=== PATIENT | male | born 1960 | race Caucasian/White ===

== ENCOUNTER 2017-02-12 16:03 | Emergency (ER) | payer OTHER ==
[2017-02-12 16:23] VITALS: RESP 16; TEMP 97.9
--- NOTE | 2017-02-12 16:30 | EDPHY ---
H & P Stated Complaint: L foot swelling Time Seen by Provider: 02/12/17 16:28 HPI/ROS: HPI: This is a 57-year-old male presents with Chief Complaint: L foot swelling Location: Left foot Quality: Swelling Duration: Since this morning Signs and Symptoms: No bleeding, no radiation, no numbness, no weakness, no tingling, no decreased range of motion, + swelling, + pain Timing: Sudden, constant, worse with weight-bearing Severity: Moderate Context: Patient has a history of atrial fibrillation on Rythmol and Xarelto presents with complaints of left foot popping on the lateral aspect as he is walking across a hardwood floors this morning barefoot. He has noticed some mild swelling and pain with weight-bearing. Of note patient had a foot surgery approximately 2 years ago. Modifying Factors: None Comment: ROS: see HPI Constitutional: No fever, no chills, no weight loss Eyes: No blurred vision Respiratory: No shortness of breath, no cough Cardiovascular: No chest pain Gastrointestinal: No nausea, no vomiting no diarrhea Genitourinary: No dysuria Extremities: No myalgias Neurologic: No weakness, no numbness Skin: No rashes Hematologic: No bruising, no bleeding MEDICAL/SURGICAL/SOCIAL HISTORY: Medical history: afib on Rythmol, ulcerative colitis, KAYLIE Surgical history: Left foot surgery Social history: CONSTITUTIONAL: Overweight adult white male, awake and alert, no obvious distress HEENT: Atraumatic and normocephalic, PERRL, EOMI. Tympanic membranes clear. Oropharynx clear, no exudate and moist pink mucosa. Airway patent. No lymphadenopathy. No meningismus. Cardiovascular: Normal S1/S2, regular rate, regular rhythm, without murmur rub or gallop. PULMONARY/CHEST: Symmetrical and nontender. Clear to auscultation bilaterally. Good air movement. No accessory muscle usage. ABDOMEN: Soft, nondistended, nontender, no rebound, no guarding, no peritoneal signs, no masses or organomegaly. No CVAT. EXTREMITIES: 2/2 DP and PT pulses, strength 5/5, left ft shows well-healed vertical incisions over the 3rd MTP, 5th MTP accompanied by well-healed incision over the talus. Ankle; Plantar flexion to 50, dorsiflexion to 20. Foot inversion to 35 degree. Tenderness present over the peroneus longus and brevis tendon along with tenderness over the extensor digitorum brevis muscle. No tenderness/swelling Anterior talofibular ligament. No tenderness/swelling Calcaneofibular ligament, no tenderness/swelling posterior talofibular ligament , no tenderness/swelling posterior inferior tibiofibular ligament. Achilles tendon intact. no deformities, no clubbing, no cyanosis or edema. NEUROLOGICAL: no focal neuro deficits. GCS 15. SKIN: Warm and dry, no erythema. no rash. Good capillary refill. Source: Patient Exam Limitations: No limitations - Personal History Current Tetanus/Diphtheria Vaccine: Unsure Current Tetanus Diphtheria and Acellular Pertussis (TDAP): Unsure Tetanus Vaccine Date: 2004 - Medical/Surgical History Hx Asthma: No Hx Chronic Respiratory Disease: No Hx Diabetes: No Hx Cardiac Disease: Yes Hx Renal Disease: No Hx Cirrhosis: No Hx Alcoholism: No Hx HIV/AIDS: No Hx Splenectomy or Spleen Trauma: No Other PMH: afib, ulcerative colitis, KAYLIE, L foot surgery, - Social History Smoking Status: Former smoker Constitutional: Initial Vital Signs Temperature (C) 36.6 C 02/12/17 16:20 Heart Rate 63 02/12/17 16:20 Respiratory Rate 16 02/12/17 16:20 Blood Pressure 143/91 H 02/12/17 16:20 O2 Sat (%) 97 02/12/17 16:20 O2 Delivery Mode Room Air Allergies/Adverse Reactions: Penicillins Allergy (Intermediate, Verified 02/12/17 16:17) HANDS SWELLING pineapple Allergy (Intermediate, Verified 02/12/17 16:17) FACIAL SWELLING HAYFEVER Allergy (Mild, Uncoded 02/12/17 16:17) RUNNY NOSE, SINUS PROB Home Medications: Medication Instructions Recorded ATENOLOL [Atenolol 50 mg] 50 mg PO DAILY 02/18/11 Doxylamine Succinate [Unisom Sleep 25 mg PO HS PRN 11/05/13 Aid] Lialda 4.8 gm PO DAILY 11/05/13 Montelukast Sodium 10 mg PO HS 11/05/13 Mellen-3 Fatty Acids/Fish Oil [Fish 1 each PO DAILY 11/05/13 Oil 1,000 mg Softgel] Omeprazole 40 mg PO DAILY 11/05/13 buPROPion XL [Wellbutrin 150mg XL] 150 mg PO DAILY 11/05/13 Atorvastatin Calcium [Lipitor 40 40 mg PO DAILY #30 tab 11/10/13 mg (*)] Propafenone HCl [Rythmol 150mg (*)] 225 mg PO BID #60 tab 11/10/13 Rivaroxaban [Xarelto] 20 mg PO DAILY #30 tablet 11/10/13 oxyCODONE/APAP 5/325 [Percocet 1 - 2 tab PO Q4H PRN #20 tab 02/12/17 5/325 (*)] Medical Decision Making - Diagnostics Imaging Results: Imaging Impressions Foot X-Ray 02/12/17 16:28 Impression: Fifth metatarsal fracture.. Procedures: Procedure: Splint placement. A left walking boot was applied by the emergency sales service technician. After application of the splint I returned and re-examined the patient. The splint was adequately immobilizing the joint and distal to the splint the patient's circulation and sensation was intact. ED Course/Re-evaluation: Left foot x-ray ordered Patient politely declined any pain medications. Ice pack applied. No signs of neurovascular compromise/tenting of skin/compartment syndrome/ extremities and joints examined above and below area of concern and are neurovascularly intact. X-ray my read shows a 5th metacarpal tarsal fracture; nondisplaced- hardware alignment is present. No loosening of hardware. Placed in walking boot; nonweightbearing status; crutches; pain control; rice therapy Patient prefers to return to Dr. Portillo as he performed his original foot surgery This patient was seen under the supervision of my primary supervising physician. I evaluated care for this patient independently. Discussed this patient with Dr. Ortiz who did not see the patient. Differential Diagnosis: Differential diagnosis includes but is not limited to, metacarpal fracture, hardware loosening, fascia strain, contusion, hematoma, tendinitis. Departure - Departure Disposition: Home, Routine, Self-Care Clinical Impression: [place] fracture Qualifiers: Encounter type: initial encounter Fracture type: closed Laterality: left Qualified Code(s): S99.192A - Other physeal fracture of left metatarsal, initial encounter for closed fracture Condition: Good Instructions: Toe Fracture (ED), Foot Fracture in Adults (ED) Additional Instructions: Wear the walking boot while out of bed and use crutches to aid ambulation. Weight-bearing status is to be toe-touch only. Take Ibuprofen 600 mg every 8 hours with food as needed for pain. Apply ice for 30 minutes at a time; 2-3 times per day for the next 1-2 days. Follow up with Orthopedics in 5-7 days at which time they will evaluate and recommend with you if conservative management versus surgery is indicated. Referrals: Karan Portillo MD [Medical Doctor] - As per Instructions Prescriptions: oxyCODONE/APAP 5/325 [Percocet 5/325 (*)] 1 - 2 tab PO Q4H PRN #20 tab PRN Reason: Pain, Severe
[2017-02-12 17:25] VITALS: BP 141/92; PULSE 68; O2SAT 96
== END 2017-02-12 17:25 | disposition home or self-care (01) ==
DX: S99.192A Other physeal fracture of left metatarsal, initial encounter for closed fracture (principal); Z87.891 Personal history of nicotine dependence; X58.XXXA Exposure to other specified factors, initial encounter; Y99.8 Other external cause status; Y93.89 Activity, other specified
CPT/HCPCS: L4386

== ENCOUNTER 2017-09-23 08:53 | Observation (INO) | payer OTHER ==
--- NOTE | 2017-09-23 07:34 | GHP ---
[f rep st] PREOP HISTORY AND PHYSICAL DATE OF ADMISSION: 09/23/2017 DATE OF SURGERY: 09/23/2017 CHIEF COMPLAINT: Left foot. HISTORY OF PRESENT ILLNESS: Patient is a 57-year-old with a history of progressive left foot deformi ty and pain. The patient is having difficulty ambulating secondary to his pain with pain along the l ateral column of his foot. PAST HISTORY: Positive for increased cholesterol, depression, hypertension. MEDICATIONS: Include atenolol, atorvastatin, bupropion, mesalamine, omeprazole, propafenone, and Xar elto. ALLERGIES: Penicillins and pineapple. SOCIAL HISTORY: Negative for tobacco use. FAMILY HISTORY: Noncontributory. REVIEW OF SYSTEMS: Noncontributory. PHYSICAL EXAMINATION: GENERAL: He is alert and oriented x3, in no acute distress. He is 6 feet 8 i nches tall and weighs 270 pounds. HEENT: Head is normocephalic. Pupils equal, round, reactive to l ight. Extraocular eye movements intact. NECK: Supple. No JVD or lymphadenopathy. CHEST: Clear t o auscultation. HEART: Regular rate and rhythm. No murmurs or gallops. ABDOMEN: Soft, nontender, nondistended. GENERAL/RECTAL/BREAST: Deferred. EXTREMITY: Caval varus malalignment of the left f oot. ASSESSMENT: Left recurrent cavovarus foot deformity. PLAN: The patient is scheduled to undergo correction of his cavovarus foot malalignment. /[id number]/MODL
[2017-09-23] MEDS ORDERED: BUPIVACAINE 0.25% 30 ML SDV ONE (09:20)
[2017-09-23] MEDS ORDERED: LIDOCAINE 1% 2 ML INJ ID PRN (09:24)
[2017-09-23] MEDS ORDERED: LR 1,000 ML IV ONE (09:24)
[2017-09-23] MEDS ORDERED: LIDOCAINE 1% 2 ML INJ ONE (09:40)
[2017-09-23] MEDS ORDERED: MIDAZOLAM 2 MG/2 ML VIAL IVP ONE (09:50)
[2017-09-23] MEDS ORDERED: CLINDAMYCIN 900 MG/DEXTROSE 50 ML IV ONE (10:00)
--- NOTE | 2017-09-23 10:09 | PDANEPAE ---
ANE History of Present Illness Left foot surgery ANE Past Medical History - Cardiovascular History Hx Hypertension: Yes Hx Arrhythmias: Yes Hx Chest Pain: No Hx Coronary Artery / Peripheral Vascular Disease: No Hx CHF / Valvular Disease: No Hx Palpitations: No Cardiovascular History Comment: A FIB - Pulmonary History Hx COPD: No Hx Asthma/Reactive Airway Disease: No Hx Recent Upper Respiratory Infection: No Hx Oxygen in Use at Home: No Hx Sleep Apnea: Yes Sleep Apnea Screening Result - Last Documented: Positive Pulmonary History Comment: PNEUMONIA 2013. KAYLIE USES C-PAP INSTRUCTED TO BRING DOS - Neurologic History Hx Cerebrovascular Accident: No Hx Seizures: No Hx Dementia: No - Endocrine History Hx Diabetes: No Hypothyroid: No Hyperthyroid: No Obesity: no - Renal History Hx Renal Disorders: Yes Renal History Comment: SL ENLARGED PROSTATE - Liver History Hx Hepatic Disorders: No - Neurological & Psychiatric Hx Hx Neurological and Psychiatric Disorders: Yes Neurological / Psychiatric History Comment: DEPRESSION - Cancer History Hx Cancer: No - Congenital Disorder History Hx Congenital Disorders: No - GI History Hx Gastrointestinal Disorders: Yes Gastrointestinal History Comment: REFLUX. ULCERATIVE COLITIS. HIATAL HERNIA - Other Health History Other Health History: L FOOT PAIN PLAYED LOTS OF BASKETBALL - Chronic Pain History Chronic Pain: Yes (LT FOOT) - Surgical History Prior Surgeries: LT FOOT RECONSTRUCTION. HEART CATH 11-10-13. COLOOSCOPY. EGD. DIL ESOPH. VASECTOMY. WISDOM TEETH. PNEUMOTHORAX- CHEST TUBE PLACEMENT. TONSILS ANE Review of Systems Review of Systems: - Exercise capacity METS (RN): 4 METS ANE Patient History - Allergies Allergies/Adverse Reactions: Penicillins Allergy (Intermediate, Verified 02/12/17 16:17) HANDS SWELLING pineapple Allergy (Intermediate, Verified 02/12/17 16:17) FACIAL SWELLING HAYFEVER Allergy (Mild, Uncoded 02/12/17 16:17) RUNNY NOSE, SINUS PROB - Home Medications Home medications: home medication list seen and reviewed Home Medications: ATENOLOL [Atenolol 50 mg] 50 mg PO DAILY 02/18/11 [Last Taken 09/23/17 07:00] Doxylamine Succinate [Unisom Sleep Aid] 25 mg PO HS PRN 11/05/13 [Last Taken Unknown] Lialda 4.8 gm PO DAILY 11/05/13 [Last Taken 11/05/13] Lynwood-3 Fatty Acids/Fish Oil [Fish Oil 1,000 mg Softgel] 1 each PO DAILY [Last Taken 1 Week Ago ~09/16/17] Omeprazole 40 mg PO DAILY 11/05/13 [Last Taken 09/23/17 07:00] buPROPion XL [Wellbutrin 150mg XL] 150 mg PO DAILY 11/05/13 [Last Taken 07:00] Aspirin DAILY 09/18/17 [Last Taken Unknown] Rivaroxaban [Xarelto] 20 mg PO HS 09/18/17 [Last Taken 09/18/17 19:00] - NPO status NPO Since - Liquids (Date): 09/23/17 NPO Since - Liquids (Time): 01:00 NPO Since - Solids (Date): 09/22/17 NPO Since - Solids (Time): 19:00 - Smoking Hx Smoking Status: Former smoker - Family Anes Hx Family Hx Anesthesia Complications: NONE ANE Labs/Vital Signs - Vital Signs Blood Pressure: 130/84 Heart Rate: 56 Respiratory Rate: 18 O2 Sat (%): 93 Height: 203.2 cm Weight: 124.738 kg ANE Physical Exam - Airway Mallampati Score: Class 2 Mouth exam: normal dental/mouth exam - Pulmonary Pulmonary: no respiratory distress, no rales or rhonchi - Cardiovascular Cardiovascular: regular rate and rhythym, systolic murmur ANE Anesthesia Plan Anesthesia Plan: GA w LMA Regional Anesthesia: continuous NB
[2017-09-23] MEDS ORDERED: fentaNYL 250 MCG/5 ML INJ ONE (10:12)
[2017-09-23] MEDS ORDERED: MIDAZOLAM 2 MG/2 ML VIAL ONE (10:12)
[2017-09-23] MEDS ORDERED: PROPOFOL/EMULSION 500 MG/50 ML BOTTLE IV ONE ×2 (10:12→11:35)
[2017-09-23] MEDS ORDERED: ROPIVACAINE 0.2% 1,100 MG in PUMP SET 1 EA NB SCH (11:30)
[2017-09-23] MEDS ORDERED: LIDOCAINE 2% 5 ML SDV ONE (11:35)
[2017-09-23] MEDS ORDERED: ROPIVACAINE HCL 150 MG/30 ML INJ ONE ×2 (11:35→12:49)
[2017-09-23] MEDS ORDERED: fentaNYL 100 MCG/2 ML INJ ONE ×2 (12:34→14:01)
[2017-09-23] MEDS ORDERED: DEXAMETHASONE 4 MG/ML VIAL ONE (12:49)
[2017-09-23] MEDS ORDERED: ePHEDrine SULFATE 25 MG/5 ML SYR ONE (13:03)
[2017-09-23] MEDS ORDERED: POLYETHYLENE GLYCOL 3350 17 GM PKT PO PRN (13:34)
[2017-09-23] MEDS ORDERED: MAGNESIUM HYDROXIDE 30 ML UDCUP PO PRN (13:34)
[2017-09-23] MEDS ORDERED: LACTULOSE 20 GM/30 ML UDCUP PO PRN (13:34)
[2017-09-23] MEDS ORDERED: NALOXONE HCL 0.4 MG/ML INJ IVP PRN ×2 (13:34→13:38)
[2017-09-23] MEDS ORDERED: morphINE PCA 30 MG/30 ML PCA IV PRN (13:34)
[2017-09-23] MEDS ORDERED: ONDANSETRON 4 MG/2 ML VIAL IVP PRN ×2 (13:34→13:38)
[2017-09-23] MEDS ORDERED: BISACODYL 10 MG SUPP PR PRN (13:34)
[2017-09-23] MEDS ORDERED: oxyCODONE IR 5 MG TAB PO PRN ×2 (13:34→13:38)
[2017-09-23] MEDS ORDERED: PROMETHAZINE HCL 25 MG/ML INJ IVP PRN ×2 (13:34→13:38)
[2017-09-23] MEDS ORDERED: HYDROmorphONE/DILAUDID 1 MG/ML INJ IVP PRN (13:38)
[2017-09-23] MEDS ORDERED: fentaNYL 100 MCG/2 ML INJ IVP PRN (13:38)
[2017-09-23] MEDS ORDERED: HYDROCODONE/APAP 5/325 TAB PO PRN (13:38)
[2017-09-23] MEDS ORDERED: ACETAMINOPHEN 500 MG TAB PO PRN (13:38)
[2017-09-23] MEDS ORDERED: LIPID EMULSION 20% 100 ML IV PRN (13:40)
--- NOTE | 2017-09-23 13:42 | POSTOPPROG ---
Post Op Note Date of Operation: 09/23/17 Surgeon: Karan Portillo Anesthesia: GET(General Endotracheal) Pre-op Diagnosis: L cavovarus foot, retained hardware Post-op Diagnosis: same Procedure: L CC arthrodesis, PTT-PB transfer, TN release, Calc osteotomy,HWR Inf/Abcess present in the surg proc area at time of surgery?: No EBL: Minimal
[2017-09-23] MEDS ORDERED: D5W 1/2 NS W/ 20 KCl/L 1,000 ML IV SCH (13:45)
[2017-09-23] MEDS ORDERED: CLINDAMYCIN 900 MG/DEXTROSE 50 ML IV SCH (14:00)
[2017-09-23] MEDS: CLINDAMYCIN 900 MG/DEXTROSE 50 ML IV SCH (17:55)
[2017-09-23] MEDS ORDERED: DOXYLAMINE SUCCINATE 25 MG PO PRN (18:45)
--- NOTE | 2017-09-23 18:58 | GOP ---
[f rep st] OPERATIVE REPORT DATE OF OPERATION: 09/23/2017 SURGEON: Karan Portillo MD ANESTHESIA: General plus indwelling popliteal and saphenous nerve blocks performed by the anesthesio logist at my request for postoperative pain management. PREOPERATIVE DIAGNOSIS: 1. Left cavovarus foot. 2. Retained hardware, left heel. POSTOPERATIVE DIAGNOSIS: 1. Left cavovarus foot. 2. Retained hardware, left heel. PROCEDURE PERFORMED: 1. Left calcaneal osteotomy. 2. Left calcaneal cuboid shortening arthrodesis. 3. Left posterior tibial tendon to peroneus brevis transfer. 4. Left talonavicular capsulotomy and release. 5. Hardware removal, left calcaneus. 6. Intraoperative use of fluoroscopy. FINDINGS: ESTIMATED BLOOD LOSS: Minimal. INDICATIONS: The patient is a 57-year-old who had previously undergone correction for cavovarus foot malalignment. Despite initial favorable alignment, the patient went on to develop recurrence of his deformity. He was having significant pain and functional limitation secondary to his deformity. Ba sed on his persistence of symptoms refractory to nonoperative treatment, he is interested in pursuing operative treatment. From an operative standpoint, further correction with revision of his calcanea l osteotomy and appropriate lateral column lengthening and tendon transfer were recommended. The pat ient acknowledged he understood the potential risks, including, but not limited to, bleeding, infecti on, neurovascular damage, loss of limb or limb function, malunion, nonunion, persistence of pain, fun ctional limitations or deformity despite operative treatment, and anesthetic risks. He acknowledged he understood the potential risks, planned procedure, and postoperative plan well, and had all questi ons answered prior to surgery. He gave his consent for the operative procedure. DESCRIPTION OF PROCEDURE: The patient brought to the operating room after IV antibiotics were admini stered. He was placed in a supine position where, prior to instituting general anesthetic, an indwel ling popliteal and saphenous nerve block was administered by the anesthesiologist at my request for p ostoperative pain management. A tourniquet was placed on his left thigh, bump underneath the left hi p and shoulder, and left lower leg was prepped and draped in standard sterile fashion. After marking the incisions and Kyler wrap exsanguination, tourniquet was inflated to 250. A longitudinal incision was made along the medial aspect of the hindfoot. Skin and subcutaneous tissue were sharply incised. The talonavicular joint was identified and transversely incised. Hypertrophic capsule was sharply excised, releasing the joint completely. The posterior tibial tendon was identified. The tendon was transected off its navicular insertion. #1 PDS sutures were placed in the stump of the tendon. Inc ision was then made along the posterior medial aspect of the distal tibia. The sheath of the posteri or tibial tendon was identified. The tendon sheath was opened, and the tendon was pulled into the me dial incision. Utilizing a periosteal elevator, dissection was carried directly along the posterior border of the distal tibia and fibula. A small incision was made along the posterior border of the d istal fibula. The posterior tibial tendon was then rerouted laterally for further transfer of the pe roneus brevis. Attention was directed toward screw removal. Under fluoroscopic guidance, the screws which were in h is calcaneus from his previous osteotomy were identified, and through a stab incision the screws were removed. The previous oblique incision over the lateral aspect of the calcaneal tuberosity was utilized for ex posure. Skin and subcutaneous tissue were sharply incised. Sharp dissection was carried down to the tuberosity level. After freeing the dorsal and plantar aspects of the tuberosity and protecting the m with Hohmann retractors, a saw was utilized to create an osteotomy in a [id number]-[id number] direction . The osteotomy was gapped open with an osteotome and bone spreaders. A small laterally based wedge was additionally removed. Using Hohmann retractors as em sticks, the tuberosity was translated lat erally and tilted into valgus. The osteotomy was secured with three 4.0 mm cortical screws placed th rough stab incisions on the heel in lag fashion. Fluoroscopic views confirmed favorable osteotomy an d hardware positions. Initial thought was toward a lateral column shortening via cuboid osteotomy. A longitudinal incision was made over the cuboid. Skin and subcutaneous tissues were sharply incised. Dissection was sekou ed dorsal to the peroneus brevis down to the cuboid. Examination of the calcaneocuboid joint, malcolm silva, revealed marked instability. It was felt that a shortening arthrodesis through the calcaneocuboid joint would be more prudent, based on this, to enable the foot to regain its appropriate position an d stability. Using a saw, the distal aspect of the calcaneus and proximal aspect of the cuboid were removed. Manual compression was performed showing an appropriate amount of correction of the forefoo t adduction. A stab incision was made on the posterior aspect of the heel. After pre-drilling throu gh the calcaneus with a 3.2 mm drill bit, a 6.5 mm screw with 16 mm threads was placed through the ca lcaneus into the cuboid. A 2.7 mm L plate was supplementally fixed along the lateral aspect of the c alcaneal cuboid joint with two 2.7 mm screws placed in both the calcaneus and the cuboid. Fluoroscop ic views confirmed favorable hardware and arthrodesis positions. The posterior tibial tendon was then tunneled into the lateral hindfoot. This was secured both dista lly and proximally into the peroneus brevis tendon under appropriate tension with #1 PDS suture. Attention was directed toward closure. The subcutaneous tissue was closed with 3-0 Vicryl suture in interrupted fashion. The skin was closed with a combination of skin dang and 3-0 nylon interrupte d sutures. The wounds were dressed with sterile Adaptic, 4 x 4, Webril, and the leg was placed in a below the splint. The patient tolerated the procedure well, and was taken to the recovery room extub ated in stable condition postoperatively. All sponge, needle, and instrument counts were reported as being correct. DRAINS: None. COMPLICATIONS: None. PLAN: The patient be admitted for overnight observation. He will be nonweightbearing on his operati ve extremity. /[id number]/MODL
[2017-09-23] MEDS ORDERED: SENNOSIDES/DOCUSATE SODIUM TAB PO SCH (21:00)
[2017-09-23] MEDS ORDERED: PROPAFENONE HCL 150 MG TAB PO SCH (21:00)
[2017-09-23] MEDS ORDERED: ATORVASTATIN CALCIUM 40 MG TAB PO SCH (21:00)
[2017-09-24] MEDS: CLINDAMYCIN 900 MG/DEXTROSE 50 ML IV SCH (02:23)
--- NOTE | 2017-09-24 06:13 | SOAPPROG ---
SOAP Progress Note Assessment/Plan: Assessment: S/P cavovarus reconstruction Some pain Stormy po +U/O Splint intact +sang D/C on heel Toes with good cap refill Decreased sensation (block) Plan: OOB/PT D/C home 09/24/17 06:12 Objective: Vital Signs Temp Pulse Resp BP Pulse Ox 36.4 C 59 L 16 132/77 H 97 09/24/17 04:00 09/24/17 04:00 09/24/17 04:00 09/24/17 04:00 09/24/17 04:00 09/23/17 09/24/17 09/25/17 05:59 05:59 05:59 Intake Total 1750 Output Total 920 Balance 830 ICD10 Worksheet Patient Problems: Problems Problem Status Onset Acute respiratory failure with hypoxia Acute
[2017-09-24 06:21] VITALS: BP 129/89
[2017-09-24] MEDS ORDERED: PANTOPRAZOLE SODIUM 40 MG TAB PO SCH (09:00)
[2017-09-24] MEDS ORDERED: MESALAMINE 4.8 GM PO SCH (09:00)
[2017-09-24] MEDS ORDERED: OMEGA-3 FATTY ACIDS 1,000 MG CAP PO SCH (09:00)
[2017-09-24] MEDS ORDERED: ASPIRIN 81 MG CHEWABLE TAB PO SCH (09:00)
[2017-09-24] MEDS ORDERED: buPROPion XL 150 MG TAB PO SCH (09:00)
[2017-09-24] MEDS ORDERED: ATENOLOL 50 MG TAB PO SCH (09:00)
--- NOTE | 2017-09-24 18:11 | POSTANESTH ---
Post Anesthetic Evaluation Cardiovascular Status: Normal, Stable Respiratory Status: Normal, Stable Level of Consciousness/Mental Status: Can Participate in Eval Pain Control: Adequate, Prn Tx Ordered Nausea/Vomiting Control: Adequate, Prn Tx Ordered Complications Possibly Related to Anesthesia: None Noted (Called pt. Doing well. Block helping pain. Medial aspect ACB worn off. Lateral leg doing ok.)
[2017-09-24] MEDS ORDERED: RIVAROXABAN 20 MG TAB PO SCH (21:00)
== END 2017-09-24 08:46 | disposition home or self-care (01) ==
LOC: FSGY 08:53 → F3E 13:34
PROVIDERS: ADMIT Orthopaedic Surgery Foot and Ankle Surgery; ATTEND Orthopaedic Surgery Foot and Ankle Surgery
PROC: 0SGL04Z Fusion of Left Tarsometatarsal Joint with Internal Fixation Device, Open Approach (ICD-10-PCS; principal; 2017-09-23 10:00)
PROC: 0Q8M0ZZ Division of Left Tarsal, Open Approach (ICD-10-PCS; principal; 2017-09-23 10:00)
PROC: 0SNQ0ZZ Release Left Toe Phalangeal Joint, Open Approach (ICD-10-PCS; principal; 2017-09-23 10:00)
DX: Z47.2 Encounter for removal of internal fixation device (principal); Q66.1 Congenital talipes calcaneovarus
CPT/HCPCS: 28272; 28300; 28740; 97161; G0378; C1713; J1100; J2250; J2270; J2704; J2795; J3010